=== PATIENT | female | born 1960 | race Caucasian/White ===

== ENCOUNTER 2018-10-02 19:06 | Emergency (ER) | payer OTHER ==
[~2018-10-02] VITALS: Ht 167.6 cm; Wt 61.2 kg
[~2018-10-02 19:06] MED LIST: NOHOMEMEDICATIONS; NORCO 5-325 TA1 EACH PO; ZOFRAN ODT4 MG PO
[2018-10-02 21:08] VITALS: BP 159/62
== END 2018-10-02 21:09 | disposition home or self-care (01) ==
LOC: ER 19:06
DX: M75.31 Calcific tendinitis of right shoulder (principal)